=== PATIENT | male | born 1945 | race Caucasian/White ===

== ENCOUNTER 2019-05-04 13:08 | Emergency (ER) | payer OTHER ==
[2019-05-04] MEDS ORDERED: traMADol TAB* 50 MG PO ONE (15:10)
[2019-05-04 15:30] VITALS: BP 134/95
--- NOTE | 2019-05-04 16:21 | ED ---
Lower Extremity - HPI Summary HPI Summary: Patient is a 74yo M presenting to the ED form [facility] with CC of L calf pain which began 2 days ago. Denies other symptoms including SOB or CP. Patient states he is currently on Xarelto. He states he developed medial left calf pain and pain behind the knee which started approximately 2 days ago. 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 Patient states he developed L medial calf pain 2 days ago but denies any injury or trauma. Remains ambulatory, but with pain. Denies erythema or warmth to the area. Patient was sent in by [facility] for concern for DVT. - History of Current Complaint Chief Complaint: EDExtremityLower Stated Complaint: LEFT LEG SWELLING/RULE OUT DVT PER OFFICER Time Seen by Provider: 05/04/19 13:12 Hx Obtained From: Patient, Medical Records Onset of Pain: Hours, Days Onset/Duration: Days Severity Initially: Moderate Severity Currently: Moderate Pain Intensity: 5 Pain Scale Used: 0-10 Numeric Timing: Constant Location: Is Discrete @ - left medial calf Character Of Pain: Aching Associated Signs And Symptoms: Positive: Swelling. Negative: Redness, Bruising , Fever, Weakness, Dizziness Aggravating Factor(s): Standing, Ambulation Alleviating Factor(s): Rest Able to Bear Weight: No - Risk Factors Gout Risk Factors: Negative DVT Risk Factors: Negative Septic Arthritis Risk Factor: Negative - Allergies/Home Medications Allergies/Adverse Reactions: Allergies Allergy/AdvReac Type Severity Reaction Status Date / Time No Known Allergies Allergy Verified 05/04/19 13:13 Home Medications: Home Medications Aspirin EC TAB* [Ecotrin EC TAB*] 325 mg PO DAILY 05/04/19 [History Confirmed ] Calcium Polycarbophil TAB* [Fibercon TAB*] 625 mg PO DAILY 05/04/19 [History Confirmed 05/04/19] Cholecalciferol TAB* [Vitamin D TAB*] 2,000 units PO DAILY 05/04/19 [History Confirmed 05/04/19] Clopidogrel TAB* [Plavix TAB*] 75 mg PO DAILY 05/04/19 [History Confirmed ] Dextran 70/Hypromellose [Artificial Tears] 1 each BOTH EYES DAILY 05/04/19 [ History Confirmed 05/04/19] Insulin GLARGINE(*) [Lantus(*)] 30 units SUBCUT Q24H 05/04/19 [History Confirmed 05/04/19] Isosorbide Mononitrate ER TAB* [Imdur ER TAB*] 60 mg PO DAILY 05/04/19 [History Confirmed 05/04/19] Levothyroxine TAB* [Synthroid TAB*] 175 mcg PO 0600 05/04/19 [History Confirmed 05/04/19] Lisinopril [Lisinopril 2.5 MG-] 2.5 mg PO DAILY 05/04/19 [History Confirmed ] Metoprolol Tartrate TAB* [Lopressor TAB*] 25 mg PO BID 05/04/19 [History Confirmed 05/04/19] Minerin Cream* [Minerin*] 1 top.gel TOPICAL DAILY 05/04/19 [History Confirmed ] Nitroglycerin TAB 0.4 MG* 0.4 mg SL Q5M PRN 05/04/19 [History Confirmed 05/04/19 ] Omeprazole CAP (NF) [Prilosec CAP* 20 MG] 20 mg PO DAILY 05/04/19 [History Confirmed 05/04/19] Ranolazine (NF) [Ranexa (NF)] 500 mg PO BID 05/04/19 [History Confirmed 05/04/19 ] celeCOXIB CAP* [CeleBREX CAP*] 100 mg PO BID 05/04/19 [History Confirmed ] glipiZIDE TAB* [Glucotrol TAB*] 20 mg PO DAILY 05/04/19 [History Confirmed 05/04] PMH/Surg Hx/FS Hx/Imm Hx Previously Healthy: Yes - Immunization History Hx Pertussis Vaccination: No Immunizations Up to Date: Yes Infectious Disease History: No Infectious Disease History: Denies: Traveled Outside the [place] in Last 30 Days - Social History Occupation: Unemployed Lives: Alone - [facility] Alcohol Use: None Substance Use Type: Reports: None Smoking Status (MU): Former Smoker Review of Systems Constitutional: Negative Negative: Fever, Chills, Fatigue, Skin Diaphoresis Negative: Palpitations, Chest Pain Negative: Shortness Of Breath, Cough Genitourinary: Negative Positive: no symptoms reported, see HPI Positive: Other - left medial calf pain with pain on palpation Skin: Negative Neurological: Negative All Other Systems Reviewed And Are Negative: Yes Physical Exam Triage Information Reviewed: Yes Vital Signs On Initial Exam: Initial Vitals Temp Pulse Resp BP Pulse Ox 98.1 F 67 17 127/81 95 05/04/19 13:10 05/04/19 13:10 05/04/19 13:10 05/04/19 13:10 05/04/19 13:10 Vital Signs Reviewed: Yes Appearance: Positive: Well-Appearing, Well-Nourished Skin: Positive: Warm, Skin Color Reflects Adequate Perfusion Head/Face: Positive: Normal Head/Face Inspection Eyes: Positive: EOMI, FRANCO, Conjunctiva Clear Neck: Positive: Supple, No Lymphadenopathy Respiratory/Lung Sounds: Positive: Clear to Auscultation, Breath Sounds Present Cardiovascular: Positive: RRR, Pulses are Symmetrical in both Upper and Lower Extremities. Negative: Leg Edema Left, Leg Edema Right Musculoskeletal: Positive: Pain @ - left medial calf pain Neurological: Positive: Speech Normal Psychiatric: Positive: Affect/Mood Appropriate AVPU Assessment: Alert Diagnostics - Vital Signs Vital Signs Temp Pulse Resp BP Pulse Ox 05/04/19 15:27 97.7 F 75 18 134/95 95 05/04/19 13:10 98.1 F 67 17 127/81 95 - Laboratory Lab Statement: Any lab studies that have been ordered have been reviewed, and results considered in the medical decision making process. Lower Extremity Course/Dx - Course Course Of Treatment: Patient evaluated for L calf pain which was acute onset 2 days ago. Denies SOB. Pain also behind the knee which remains unchanged x several years. Remains ambulatory. Worse with abulation, better with rest. US obtained. No left lower exremity DVT. Complicated fluid collection extending from the popliteal fossa to the proximal calf suggestive of a ruptured cust. Additionally, there is a complex cystic and solid mass of the medial popliteal fossa that is incompletely evaluated on the current examination. Recommend consideration of further evaluation with contrast enhanced MRI of the knee. Discussed with patient who will f/u with ortho. Likely this is cystic vs. fluid from bakers cyst. Patient remains ambulatory. No erythema or warmth. Pulses +2 intact bilaterally. No numbness or tingling. Positive homans. Pain with direct pressure. - Diagnoses Differential Diagnosis/HQI/PQRI: Positive: Other - ruptured bakers cyst, cystic mass, dvt Provider Diagnoses: Ruptured Bakers cyst, Calf pain Discharge - Sign-Out/Discharge Documenting (check all that apply): Patient Departure Patient Received Moderate/Deep Sedation with Procedure: No - Discharge Plan Condition: Stable Disposition: HOME Prescriptions: traMADol TAB* [Ultram*] 50 mg PO Q8H PRN #12 tab MDD 3 PRN Reason: Pain Patient Education Materials: Bakers Cyst (ED) Referrals: Anne Dubon MD [Medical Doctor] - Jose D ASHRAF,Jessy Streeter [Primary Care Provider] - Additional Instructions: Please follow up with orthopedics regarding this issue - call for an appt tomorrow Tramadol 50mg three times daily given for pain control Continue to take tylenol intermittently I have given you information/name and phone number for ortho Ele[facility] and rest when possible - Billing Disposition and Condition Condition: STABLE Disposition: Home
== END 2019-05-04 15:27 | disposition home or self-care (01) ==
LOC: ED 13:08
DX: M66.0 Rupture of popliteal cyst (principal); M79.662 Pain in left lower leg; Z79.01 Long term (current) use of anticoagulants; Z79.82 Long term (current) use of aspirin; Z87.891 Personal history of nicotine dependence
CPT/HCPCS: 99282; A9270-GY

== ENCOUNTER 2020-01-08 12:56 | Emergency (ER) | payer OTHER ==
[2020-01-08] MEDS ORDERED: oxyCODONE/Acetamin 5/325 MG* TAB PO ONE (13:21)
[2020-01-08] MEDS ORDERED: Ketorolac INJ* 30 MG/ML 1 ML VIAL IM ONE (13:21)
--- NOTE | 2020-01-08 14:48 | ED ---
Lower Extremity - HPI Summary HPI Summary: Patient is a 74 y/o M presenting to [facility] with complaints of pain at his left knee to his left-mid thigh area. He states that he has experienced issues with this knee in the past and claims he was under consideration to receive a knee replacement. Pain has been present for the past few days. It is noted that the pain is mostly at the frontal aspect of the leg; pain is characterized as a burning sensation. He notes that he uses a wheelchair to move long distances. At baseline, he is capable of ambulating a few steps but has not been able to do this recently secondary to pain. He denies lower leg, hip and back pain as well as recent falls or discrete injuries. Movement and palpation aggravate Sx. He also claims that he has had a lump at his left knee area since 2002. Home medications and allergies are reviewed. Temperature is 98.2 F on vitals, no fever. Home Medications Medication Instructions Recorded Confirmed Type Aspirin EC TAB* [Ecotrin EC TAB*] 325 mg PO DAILY 05/04/19 05/04/19 History Calcium Polycarbophil TAB* 625 mg PO DAILY 05/04/19 05/04/19 History [Fibercon TAB*] Cholecalciferol TAB* [Vitamin D 2,000 units PO DAILY 05/04/19 05/04/19 History TAB*] Clopidogrel TAB* [Plavix TAB*] 75 mg PO DAILY 05/04/19 05/04/19 History Insulin GLARGINE(*) [Lantus(*)] 30 units SUBCUT Q24H 05/04/19 05/04/19 History Isosorbide Mononitrate ER TAB* 60 mg PO DAILY 05/04/19 05/04/19 History [Imdur ER TAB*] Levothyroxine TAB* [Synthroid TAB*] 175 mcg PO 0600 05/04/19 05/04/19 History Metoprolol Tartrate TAB* 25 mg PO BID 05/04/19 05/04/19 History [Lopressor TAB*] Omeprazole CAP (NF) [Prilosec CAP* 20 mg PO DAILY 05/04/19 05/04/19 History 20 MG] Ranolazine (NF) [Ranexa (NF)] 500 mg PO BID 05/04/19 05/04/19 History glipiZIDE TAB* [Glucotrol TAB*] 20 mg PO DAILY 05/04/19 05/04/19 History lisinopriL [Lisinopril 2.5 MG-] 2.5 mg PO DAILY 05/04/19 05/04/19 History Ibuprofen TAB* [Motrin TAB* 600 MG] 600 mg PO TID PRN 01/08/20 01/08/20 History - History of Current Complaint Chief Complaint: EDExtremityLower Stated Complaint: L LEG PAIN PER EMS Time Seen by Provider: 01/08/20 13:13 Hx Obtained From: Patient Mechanism Of Injury: Other - no discrete injury Onset of Pain: Days, Prior to Arrival Onset/Duration: Still Present Severity Currently: Severe Pain Intensity: 10 Pain Scale Used: 0-10 Numeric Timing: Constant, Lasting Days Location: Is Discrete @ - left knee to left mid thigh area Character Of Pain: Burning Associated Signs And Symptoms: Positive: Knee Pain - left, Other - denies lower leg, hip and back pain as well as recent falls or discrete injuries Aggravating Factor(s): Movement, Other - palpation - Allergies/Home Medications Allergies/Adverse Reactions: Allergies Allergy/AdvReac Type Severity Reaction Status Date / Time No Known Allergies Allergy Verified 01/08/20 13:06 Home Medications: Home Medications Aspirin EC TAB* [Ecotrin EC TAB*] 325 mg PO DAILY 05/04/19 [History Confirmed ] Calcium Polycarbophil TAB* [Fibercon TAB*] 1,000 mg PO DAILY 05/04/19 [History Confirmed 01/08/20] Cholecalciferol TAB* [Vitamin D TAB*] 2,000 units PO DAILY 05/04/19 [History Confirmed 01/08/20] Clopidogrel TAB* [Plavix TAB*] 75 mg PO DAILY 05/04/19 [History Confirmed ] Insulin GLARGINE(*) [Lantus(*)] 40 units SUBCUT QPM 05/04/19 [History Confirmed 01/08/20] Isosorbide Mononitrate ER TAB* [Imdur ER TAB*] 60 mg PO QPM 05/04/19 [History Confirmed 01/08/20] Levothyroxine TAB* [Synthroid TAB*] 175 mcg PO DAILY 05/04/19 [History Confirmed 01/08/20] Metoprolol Tartrate TAB* [Lopressor TAB*] 25 mg PO BID 05/04/19 [History Confirmed 01/08/20] Omeprazole CAP (NF) [Prilosec CAP* 20 MG] 20 mg PO DAILY 05/04/19 [History Confirmed 01/08/20] Ranolazine (NF) [Ranexa (NF)] 500 mg PO BID 05/04/19 [History Confirmed 01/08/20 ] glipiZIDE TAB* [Glucotrol TAB*] 20 mg PO DAILY 05/04/19 [History Confirmed 01/08] lisinopriL [Lisinopril 2.5 MG-] 2.5 mg PO DAILY 05/04/19 [History Confirmed ] Ibuprofen TAB* [Motrin TAB* 600 MG] 600 mg PO TID PRN 01/08/20 [History Confirmed 01/08/20] PMH/Surg Hx/FS Hx/Imm Hx Sensory History: Denies: Hx Legally Blind, Hx Deafness Opthamlomology History: Denies: Hx Legally Blind EENT History: Denies: Hx Deafness Infectious Disease History: No Infectious Disease History: Denies: Traveled Outside the [place] in Last 30 Days - Family History Known Family History: Negative: Seizure Disorder - Social History Alcohol Use: None Substance Use Type: Reports: None Smoking Status (MU): Former Smoker Review of Systems Negative: Fever - Temperature is 98.2 F on vitals, no fever. Musculoskeletal: Other - negative - lower leg, hip and back pain as well as recent falls or discrete injuries Positive: Myalgia - pain at left knee to his left-mid thigh area All Other Systems Reviewed And Are Negative: Yes Physical Exam - Summary Physical Exam Summary: Constitutional: Well-developed, Well-nourished, Alert. (-) Distressed Skin: Warm, Dry HENT: Normocephalic; Atraumatic Eyes: Conjunctiva normal Neck: Musculoskeletal ROM normal neck. (-) JVD, (-) Stridor, (-) Nuchal rigidity Cardio: Rhythm regular, rate normal, Heart sounds normal; Intact distal pulses; Radial pulses are 2+ and symmetric. (-) Murmur Pulmonary/Chest wall: Effort normal. (-) Respiratory distress, (-) Wheezes, (-) Rales Abd: Soft, (-) tenderness, (-) Distension, (-) Guarding, (-) Rebound Musculoskeletal: Tenderness over the left anterior thigh, pain with straight leg raise of LLE, no pain distal to the knee, no lumbar tenderness. (-) Edema Lymph: (-) Cervical adenopathy Neuro: Alert, Oriented x3 Psych: Mood and affect Normal Triage Information Reviewed: Yes Vital Signs On Initial Exam: Initial Vitals Temp Pulse Resp BP Pulse Ox 98.2 F 62 19 183/112 97 01/08/20 13:02 01/08/20 13:02 01/08/20 13:02 01/08/20 13:02 01/08/20 13:02 Vital Signs Reviewed: Yes Procedures - Sedation Patient Received Moderate/Deep Sedation with Procedure: No Diagnostics - Vital Signs Vital Signs Temp Pulse Resp BP Pulse Ox 01/08/20 13:44 19 01/08/20 13:02 98.2 F 62 19 183/112 97 - Laboratory Result Diagrams: 01/08/20 16:28 01/08/20 16:28 Lab Statement: Any lab studies that have been ordered have been reviewed, and results considered in the medical decision making process. - Radiology LEFT FEMUR X-RAY Radiology Interpretation Completed By: Radiologist Summary of Radiographic Findings: IMPRESSION: 1. No fracture identified. 2. Radiopaque debris. 3. Vascular calcifications. 4. Postoperative changes. 5. Moderate osteoarthropathy left hip and knee. THIS REPORT WAS REVIEWED BY ED PHYSICIAN. - EKG 1704 Cardiac Rate: NL - rate of 65 BPM EKG Rhythm: Sinus Rhythm EKG Comparison: No Significant Change - No significant changes compared to prior from 08/07/2018. Summary of EKG Findings: EKG showed NSR with rate of 65 BPM, incomplete RBBB, T wave inversions in lead I, aVL, V1, V2. No significant changes compared to prior from 08/07/2018. Re-Evaluation - Re-Evaluation First Eval Re-Evaluation Time: 14:11 Comment: Patient is currently sleeping. Second Eval Re-Evaluation Time: 16:23 Comment: Upon notification of discharge, patient states that he wants to have a cardiac workup as he claims that he had an episode of angina earlier. Hx of cardiac disease reported. Cardiac workup to be done. Third Eval Re-Evaluation Time: 18:08 Comment: Patient ambulated to the bathroom. He denies CP. Sx are improved. Patient to be discharged to home. Lower Extremity Course/Dx - Course Course Of Treatment: 74 y/o male w hx CAD p/w RLE pain. - L spine XR at group home done, denies back pain. Exam c/w meralgia paresthetica. Given toradol, percocet felt better. XR neg. Advised he can try motrin, percocet. Upon discharge patient requesting cardiac w/u as he had angina at rest earlier. Hx of similar, known CAD. EKG unchanged from prior obtained from group home records. Trop negative. Denies current symptoms. - Diagnoses Provider Diagnoses: Meralgia paresthetica of left side, Chest pain Discharge ED - Sign-Out/Discharge Documenting (check all that apply): Patient Departure - discharge - Discharge Plan Condition: Stable Disposition: HOME Patient Education Materials: Chest Pain (ED), Meralgia Paresthetica (ED) Referrals: Jessy Jeffery NP [Primary Care Provider] - Additional Instructions: You were seen in the emergency department for pain. Your x-ray didn't show any fractures. You likely have a pinched nerve. Try mortrin 800 mg three times a day, percocet 5-325 mg for severe pain and flexeril 10 mg for muscle pain. Please follow up with your primary care doctor in next 2-3 days and return to emergency department for chest pain, trouble breathing, worsening or concerning symptoms. It was a pleasure taking care of you today. - Billing Disposition and Condition Condition: STABLE Disposition: Home - Attestation Statements Document Initiated by Keily: Yes Documenting Scribe: KIMBERLEY ARRIAGA Provider For Whom Keily is Documenting (Include Credential): SHERYL WAN MD Scribe Attestation: I, KIMBERLEY ARRIAGA, scribed for SHERYL WAN MD on 01/08/20 at 1820. Scribe Documentation Reviewed: Yes Provider Attestation: The documentation as recorded by the KIMBERLEY ly accurately reflects the service I personally performed and the decisions made by me, SHERYL WAN MD Status of Scribe Document: Viewed
[2020-01-08] MEDS ORDERED: Cyclobenzaprine TAB* 10 MG PO ONE (16:23)
[2020-01-08] MEDS ORDERED: Aspirin 81 mg CHEW TAB* 81 MG TAB.CHEW PO ONE (16:23)
[2020-01-08 16:44] LABS: ABS Basophils 0.1 10^3/ul (0-0.2); ABS Eosinophils 0.1 10^3/ul (0-0.6); ABS Lymphocytes 1.6 10^3/ul (1.0-4.8); ABS Monocytes 0.8 10^3/ul (0-0.8); ABS Neutrophils 4.4 10^3/ul (1.5-7.7); Hematocrit 40 % (42-52); Hemoglobin 13.3 g/dL (14.0-18.0); Lymphocyte % 23.2 %; Mean Corpuscular HGB Conc 33 g/dL (31-36); Mean Corpuscular Hemoglobin 25 pg (27-31); Mean Corpuscular Volume 77 fL (80-94); Mean Platelet Volume 8.9 fL (7.4-10.4); Nucleated Red Blood Cells % 0.2; Platelet Count 162 10^3/uL (150-450); Red Blood Count 5.22 10^6 /uL (4.18-5.48); Red Cell Distribution Width 17 % (10-15)
[2020-01-08 16:56] LABS: Albumin 4.4 g/dL (3.2-5.2); Albumin/Globulin Ratio 1.4 (1-3); BUN/Creatinine Ratio 12.6 (8-20); Calcium 9.7 mg/dL (8.6-10.3); EGFR African American 66.7 (>60); EGFR Non-African American 55.1 (>60); Globulin 3.1 g/dL (2-4); Potassium 3.6 mmol/L (3.5-5.0); Total Bilirubin 0.6 mg/dL (0.2-1.0); Total Protein 7.5 g/dL (6.4-8.9)
[2020-01-08 16:57] LABS: Troponin I 0.02 ng/mL (<0.03)
[2020-01-08 18:27] VITALS: BP 165/88
== END 2020-01-08 18:26 | disposition home or self-care (01) ==
LOC: ED 12:56
DX: G57.12 Meralgia paresthetica, left lower limb (principal); R07.9 Chest pain, unspecified; Z87.891 Personal history of nicotine dependence; Z79.01 Long term (current) use of anticoagulants; Z79.82 Long term (current) use of aspirin; Z79.899 Other long term (current) drug therapy
CPT/HCPCS: 36415; 80053; 84484; 85025; 93005; 96372; 99282; A9270-GY; J1885

== ENCOUNTER 2020-12-01 18:16 | Inpatient (IN) ==
[2020-12-01] MEDS ORDERED: Heparin - STEMI 5,000 UNITS/ML 1 ml VIAL IV ONE ×2 (18:37)
[2020-12-01 18:47] LABS: INR 1.3 (0.82-1.09)
[2020-12-01 18:56] LABS: Hematocrit 22 % (42-52); Hemoglobin 6.8 g/dL (14.0-18.0); Mean Corpuscular HGB Conc 31 g/dL (31-36); Mean Corpuscular Hemoglobin 31 pg (27-31); Mean Corpuscular Volume 100 fL (80-94); Mean Platelet Volume 8.1 fL (7.4-10.4); Platelet Count 98 10^3/uL (150-450); Red Blood Count 2.19 10^6 /uL (4.18-5.48); Red Cell Distribution Width 19 % (10-15); White Blood Count 10.6 10^3/uL (3.5-10.8)
[2020-12-01 18:58] LABS: ALT 15 U/L (7-52); AST 37 U/L (13-39); Albumin 4.3 g/dL (3.2-5.2); Albumin/Globulin Ratio 1.2 (1-3); Alkaline Phosphatase 40 U/L (34-104); Anion Gap 9 mmol/L (2-11); BUN/Creatinine Ratio 12.1 (8-20); Blood Urea Nitrogen 24 mg/dL (6-24); CO2 Carbon Dioxide 22 mmol/L (22-32); Calcium 9.4 mg/dL (8.6-10.3); Chloride 103 mmol/L (101-111); EGFR African American 39.6 (>60); EGFR Non-African American 32.7 (>60); Globulin 3.6 g/dL (2-4); Glucose 63 mg/dL (70-100); Potassium 3.7 mmol/L (3.5-5.0); Sodium 134 mmol/L (135-145); Total Protein 7.9 g/dL (6.4-8.9)
[2020-12-01] MEDS ORDERED: Midazolam 5 mg/5 ml VIAL 1 mg/ml 5 ml VIAL (5 mg) ONE (18:59)
[2020-12-01] MEDS ORDERED: nitroGLYCERIN DRIP 25,000 MCG/250 ML BTL ONE (19:00)
[2020-12-01] MEDS ORDERED: fentaNYL 100 mcg/2 ml 50 MCG/ML VIAL ONE (19:00)
[2020-12-01] MEDS ORDERED: VERAPAMIL 2.5 MG/ML 2 ML VIAL ** 5 mg/2 ml ONE (19:00)
[2020-12-01] MEDS ORDERED: Iohexol 350 (CONTRAST) 200 ML MDV IV ONE (19:00)
[2020-12-01] MEDS ORDERED: Heparin 2 UNITS/ML 1000 mls 2,000 ML IV ONE (19:00)
[2020-12-01] MEDS ORDERED: Lidocaine 1% VIAL 10 MG/ML VIAL ONE (19:00)
[2020-12-01] MEDS ORDERED: Heparin 1,000 UNIT/ML 10 ml (10,000 UNITS) CATHLAB/DIALYSIS ONE (19:00)
[2020-12-01 19:01] LABS: Troponin I 2.31 ng/mL (<0.03)
[2020-12-01] MEDS ORDERED: Iodixanol 320 (CONTRAST) 100 ML SDV ONE ×3 (19:09→20:02)
[2020-12-01] MEDS ORDERED: Amiodarone IV 150 mg/3 ml VIAL ONE (19:37)
[2020-12-01] MEDS ORDERED: Magnesium Sulfate IV 0.5 GM/ML 2 ml VIAL (1 gm) ONE (19:38)
[2020-12-01] MEDS ORDERED: DOPamine 800 MG/250 ML IVPREM 800 MG/250 ML ML CENTR ONE (19:40)
[2020-12-01] MEDS ORDERED: Amiodarone 360 MG IVPREMIX 360 MG/200 ML BAG IV ONE ×2 (19:49→20:00)
[2020-12-01 19:59] LABS: Polychromasia 2+
[2020-12-01 20:00] LABS: ABS Lymphocytes 1.4 10^3/ul (1.0-4.8); ABS Monocytes 0.3 10^3/ul (0-0.8); ABS Neutrophils 8.9 10^3/ul (1.5-7.7); ABS Nucleated RBC 0.1 10^3/ul
[2020-12-01] MEDS ORDERED: NS 0.9% 1000 ml BAG 1,000 ML IV ONE ×2 (20:27→23:17)
[2020-12-01] MEDS ORDERED: Furosemide 40 mg/4 ml IV VIAL IV SLOW PU ONE (21:18)
[2020-12-01] MEDS ORDERED: Morphine 2 MG/ML SYRINGE IV ONE (21:42)
[2020-12-01] MEDS ORDERED: Ondansetron 4 mg VIAL 2 MG/ML 2 ml VIAL ONE (21:59)
[2020-12-01] MEDS ORDERED: Ondansetron 4 mg VIAL 2 MG/ML 2 ml VIAL IV ONE (22:08)
[2020-12-01 22:28] LABS: ABS Lymphocytes 1.3 10^3/ul (1.0-4.8); ABS Monocytes 0.4 10^3/ul (0-0.8); ABS Neutrophils 10.1 10^3/ul (1.5-7.7); ABS Nucleated RBC 0.2 10^3/ul; Eosinophil % 0.4 %; Hematocrit 21 % (42-52); Hemoglobin 6.5 g/dL (14.0-18.0); Lymphocyte % 11.1 %; Mean Corpuscular HGB Conc 31 g/dL (31-36); Mean Corpuscular Hemoglobin 31 pg (27-31); Mean Corpuscular Volume 99 fL (80-94); Mean Platelet Volume 7.9 fL (7.4-10.4); Nucleated Red Blood Cells % 1.2; Platelet Count 93 10^3/uL (150-450); Red Blood Count 2.12 10^6 /uL (4.18-5.48); Red Cell Distribution Width 19 % (10-15); White Blood Count 11.9 10^3/uL (3.5-10.8)
[2020-12-01 22:40] LABS: Anion Gap 11 mmol/L (2-11); BUN/Creatinine Ratio 12.5 (8-20); Blood Urea Nitrogen 25 mg/dL (6-24); CO2 Carbon Dioxide 20 mmol/L (22-32); Calcium 8.9 mg/dL (8.6-10.3); Chloride 101 mmol/L (101-111); EGFR African American 39.4 (>60); EGFR Non-African American 32.6 (>60); Glucose 77 mg/dL (70-100); Magnesium 1.8 mg/dL (1.9-2.7); Phosphorus 3.6 mg/dL (2.5-5.0); Potassium 3.5 mmol/L (3.5-5.0); Sodium 132 mmol/L (135-145)
[2020-12-01] MEDS ORDERED: Potassium Chlor 20 meq TAB.ER PO ONE (23:18)
[2020-12-01] MEDS ORDERED: Magnesium Sulfate IV 3 GM in NS 0.9% 100 ml BAG 100 ML IVPB ONE (23:18)
[2020-12-01 23:23] LABS: TSH Ultra Thyroid Stim Horm 7.17 mcIU/mL (0.34-5.60)
[2020-12-01 23:38] LABS: Troponin I 2.24 ng/mL (<0.03)
[2020-12-02 00:23] LABS: Free T4 0.61 ng/dL (0.61-1.12)
[2020-12-02 01:11] LABS: Total T3 55 ng/dL (87-178)
[2020-12-02] MEDS: Amiodarone 360 MG IVPREMIX 360 MG/200 ML BAG IV SCH ×2 (01:36→11:49)
[2020-12-02] MEDS ORDERED: Dextrose 50% Syringe 50 ml 25 GM/50 ML SYRINGE IV PUSH PRN (02:28)
[2020-12-02 03:41] LABS: Troponin I 3.57 ng/mL (<0.03)
[2020-12-02 03:59] LABS: Hematocrit 24 % (42-52); Hemoglobin 7.4 g/dL (14.0-18.0); Mean Corpuscular HGB Conc 32 g/dL (31-36); Mean Corpuscular Hemoglobin 30 pg (27-31); Mean Corpuscular Volume 96 fL (80-94); Mean Platelet Volume 8.3 fL (7.4-10.4); Platelet Count 88 10^3/uL (150-450); Red Blood Count 2.45 10^6 /uL (4.18-5.48); Red Cell Distribution Width 19 % (10-15); White Blood Count 12.3 10^3/uL (3.5-10.8)
[2020-12-02 04:11] LABS: ALT 14 U/L (7-52); AST 38 U/L (13-39); Albumin 3.7 g/dL (3.2-5.2); Alkaline Phosphatase 39 U/L (34-104); Anion Gap 11 mmol/L (2-11); Blood Urea Nitrogen 23 mg/dL (6-24); CO2 Carbon Dioxide 20 mmol/L (22-32); Calcium 8.5 mg/dL (8.6-10.3); Chloride 100 mmol/L (101-111); Cholesterol 116 mg/dL; EGFR African American 41.3 (>60); EGFR Non-African American 34.1 (>60); Globulin 3.7 g/dL (2-4); Glucose 129 mg/dL (70-100); HDL Cholesterol 18.1 mg/dL; LDL Cholesterol 56 mg/dL; Potassium 3.6 mmol/L (3.5-5.0); Sodium 131 mmol/L (135-145); Total Protein 7.4 g/dL (6.4-8.9); Triglycerides 209 mg/dL
[2020-12-02] MEDS ORDERED: Potassium Chlor 20 meq TAB.ER PO ONE (04:21)
[2020-12-02 05:08] LABS: Polychromasia 3+
[2020-12-02 05:11] LABS: ABS Monocytes 0.4 10^3/ul (0-0.8); ABS Neutrophils 10.9 10^3/ul (1.5-7.7); ABS Nucleated RBC 0.1 10^3/ul; Eosinophil % 0.3 %; Lymphocyte % 7.9 %; Nucleated Red Blood Cells % 1.1
[2020-12-02 07:47] LABS: Magnesium 2.2 mg/dL (1.9-2.7)
[2020-12-02] MEDS ORDERED: Perflutren Lipid Microsphere 3 ML VIAL ONE (08:18)
[2020-12-02 13:27] LABS: ABS Lymphocytes 0.9 10^3/ul (1.0-4.8); ABS Monocytes 0.4 10^3/ul (0-0.8); ABS Neutrophils 9.6 10^3/ul (1.5-7.7); ABS Nucleated RBC 0.2 10^3/ul; Eosinophil % 0.3 %; Hematocrit 23 % (42-52); Hemoglobin 7.5 g/dL (14.0-18.0); Lymphocyte % 8.4 %; Mean Corpuscular HGB Conc 33 g/dL (31-36); Mean Corpuscular Hemoglobin 31 pg (27-31); Mean Corpuscular Volume 95 fL (80-94); Mean Platelet Volume 7.5 fL (7.4-10.4); Nucleated Red Blood Cells % 1.6; Platelet Count 84 10^3/uL (150-450); Red Blood Count 2.44 10^6 /uL (4.18-5.48); Red Cell Distribution Width 19 % (10-15); White Blood Count 10.9 10^3/uL (3.5-10.8)
[2020-12-02 15:01] LABS: Troponin I 3.73 ng/mL (<0.03)
[2020-12-02 15:10] LABS: % Iron Saturation 10 % (15-55); Iron 29 ug/dL (50-212); Total Iron Binding Capacity 283 mcg/dL (250-450); Transferrin 202 mg/dL (203-362); Unsaturated Iron Binding < 268 ug/dL
[2020-12-02 15:25] LABS: Ferritin 240.5 ng/mL (24-336)
[2020-12-02] MEDS ORDERED: Ondansetron 4 mg VIAL 2 MG/ML 2 ml VIAL ONE (16:05)
[2020-12-02] MEDS: Ondansetron 4 mg VIAL 2 MG/ML 2 ml VIAL IV PRN (16:20)
[2020-12-02] MEDS ORDERED: fentaNYL 100 mcg/2 ml 50 MCG/ML VIAL ONE (17:05)
[2020-12-02] MEDS ORDERED: Midazolam 10 mg/10 ml VIAL 1 mg/ml 10 ml VIAL (10 mg) ONE (17:05)
[2020-12-02] MEDS ORDERED: diPHENhydraMINE IV 50 MG/ML 1 ml VIAL (BENADRYL) ONE (17:06)
[2020-12-02] MEDS ORDERED: Furosemide 40 mg/4 ml IV VIAL IV SLOW PU ONE (20:17)
[2020-12-02] MEDS: Pantoprazole VIAL 40 MG VIAL IV SCH (21:17)
[2020-12-03 05:36] LABS: Hematocrit 27 % (42-52); Hemoglobin 8.8 g/dL (14.0-18.0); Mean Corpuscular HGB Conc 32 g/dL (31-36); Mean Corpuscular Hemoglobin 30 pg (27-31); Mean Corpuscular Volume 94 fL (80-94); Mean Platelet Volume 7.5 fL (7.4-10.4); Platelet Count 82 10^3/uL (150-450); Red Blood Count 2.89 10^6 /uL (4.18-5.48); Red Cell Distribution Width 20 % (10-15); White Blood Count 7.7 10^3/uL (3.5-10.8)
[2020-12-03 05:53] LABS: Anion Gap 9 mmol/L (2-11); BUN/Creatinine Ratio 10.8 (8-20); Blood Urea Nitrogen 20 mg/dL (6-24); CO2 Carbon Dioxide 23 mmol/L (22-32); Calcium 9.1 mg/dL (8.6-10.3); Chloride 103 mmol/L (101-111); EGFR African American 42.8 (>60); EGFR Non-African American 35.4 (>60); Glucose 50 mg/dL (70-100); Potassium 3.7 mmol/L (3.5-5.0); Sodium 135 mmol/L (135-145)
[2020-12-03 06:12] LABS: % Iron Saturation 20 % (15-55); Iron 53 ug/dL (50-212); Total Iron Binding Capacity 262 mcg/dL (250-450); Transferrin 187 mg/dL (203-362); Unsaturated Iron Binding < 247 ug/dL
[2020-12-03 06:38] LABS: Folate 10.84 ng/mL (>3.99); Vitamin B12 > 1450 pg/mL (180-914)
[2020-12-03] MEDS: Pantoprazole VIAL 40 MG VIAL IV SCH ×2 (08:31→20:55)
[2020-12-03] MEDS ORDERED: Iron Sucrose 200 MG in NS 0.9% 100 ml BAG 100 ML IVPB ONE (11:05)
[2020-12-03] MEDS: Triamcinolone 0.5% OINT 1 TUBE TOPICAL SCH ×2 (14:56→22:18)
[2020-12-03] MEDS ORDERED: Magnesium CITRATE LIQ 300 ML BTL PO ONE (16:04)
[2020-12-04] MEDS: Pantoprazole VIAL 40 MG VIAL IV SCH (08:47)
[2020-12-04 09:09] LABS: BUN/Creatinine Ratio 14.6 (8-20); Calcium 8.7 mg/dL (8.6-10.3); EGFR African American 38.1 (>60); EGFR Non-African American 31.5 (>60); Magnesium 2.2 mg/dL (1.9-2.7)
[2020-12-04 09:46] LABS: ABS Lymphocytes 0.9 10^3/ul (1.0-4.8); ABS Monocytes 0.1 10^3/ul (0-0.8); ABS Neutrophils 4.4 10^3/ul (1.5-7.7); Eosinophil % 0.8 %; Hematocrit 29 % (42-52); Hemoglobin 9.1 g/dL (14.0-18.0); Lymphocyte % 16.5 %; Mean Corpuscular HGB Conc 31 g/dL (31-36); Mean Corpuscular Hemoglobin 30 pg (27-31); Mean Corpuscular Volume 97 fL (80-94); Mean Platelet Volume 8.3 fL (7.4-10.4); Nucleated Red Blood Cells % 0.7; Platelet Count 103 10^3/uL (150-450); Red Blood Count 3.01 10^6 /uL (4.18-5.48); Red Cell Distribution Width 20 % (10-15); White Blood Count 5.6 10^3/uL (3.5-10.8)
[2020-12-04] MEDS: Triamcinolone 0.5% OINT 1 TUBE TOPICAL SCH ×3 (10:58→21:43)
[2020-12-05] MEDS: Triamcinolone 0.5% OINT 1 TUBE TOPICAL SCH ×3 (09:05→20:25)
[2020-12-05 09:38] LABS: Hematocrit 29 % (42-52); Mean Corpuscular HGB Conc 31 g/dL (31-36); Mean Corpuscular Hemoglobin 30 pg (27-31); Mean Corpuscular Volume 95 fL (80-94); Mean Platelet Volume 7.9 fL (7.4-10.4); Platelet Count 110 10^3/uL (150-450); Red Blood Count 3.05 10^6 /uL (4.18-5.48); Red Cell Distribution Width 20 % (10-15); White Blood Count 4.9 10^3/uL (3.5-10.8)
[2020-12-05 09:58] LABS: BUN/Creatinine Ratio 16.7 (8-20); Calcium 8.8 mg/dL (8.6-10.3); EGFR African American 39.9 (>60); EGFR Non-African American 32.9 (>60); Potassium 4.1 mmol/L (3.5-5.0)
[2020-12-05 11:41] LABS: Polychromasia 2+
[2020-12-05 11:42] LABS: ABS Basophils 0.1 10^3/ul (0-0.2); ABS Lymphocytes 1.1 10^3/ul (1.0-4.8); ABS Monocytes 0.1 10^3/ul (0-0.8); ABS Neutrophils 3.7 10^3/ul (1.5-7.7); Lymphocyte % 21.4 %; Nucleated Red Blood Cells % 0.5
[2020-12-05 13:03] LABS: Indirect Bilirubin 0.7 mg/dL (0.3-1.0); Phosphorus 3.4 mg/dL (2.5-5.0); Total Bilirubin 0.9 mg/dL (0.2-1.0)
[2020-12-05] MEDS ORDERED: Aspirin EC 81 mg TAB.EC (enteric coated) ONE (13:07)
[2020-12-05] MEDS: Aspirin EC 81 mg TAB.EC (enteric coated) PO SCH (13:08)
[2020-12-05 13:11] LABS: Corrected Retic Count 3.4 % (0.5-1.5); Hematocrit for Retic CNT 29 % (42-52); Immature Retic Fraction 0.67; RBC Retic Count 3.02 10^6/uL (4.18-5.48)
[2020-12-05 13:44] LABS: Hematocrit 28 % (42-52); Hemoglobin 8.9 g/dL (14.0-18.0); Mean Corpuscular HGB Conc 32 g/dL (31-36); Mean Corpuscular Hemoglobin 30 pg (27-31); Mean Corpuscular Volume 97 fL (80-94); Platelet Count 108 10^3/uL (150-450); Red Blood Count 2.93 10^6 /uL (4.18-5.48); Red Cell Distribution Width 20 % (10-15); White Blood Count 4.4 10^3/uL (3.5-10.8)
[2020-12-05 13:53] LABS: Hepatitis B Surface Antigen Nonreactive (Nonreactive)
[2020-12-05 13:58] LABS: Hepatitis A Ab IgM Negative (Negative)
[2020-12-05 14:03] LABS: BUN/Creatinine Ratio 17.8 (8-20); Calcium 8.9 mg/dL (8.6-10.3); EGFR African American 40.1 (>60); EGFR Non-African American 33.1 (>60); Potassium 4.3 mmol/L (3.5-5.0)
[2020-12-05 14:11] LABS: Hepatitis C Antibody Negative (Negative)
[2020-12-05 15:12] LABS: ABS Eosinophils 0.1 10^3/ul (0-0.6); ABS Lymphocytes 0.9 10^3/ul (1.0-4.8); ABS Monocytes 0.1 10^3/ul (0-0.8); ABS Neutrophils 3.3 10^3/ul (1.5-7.7); Eosinophil % 1.4 %; Lymphocyte % 20.4 %; Nucleated Red Blood Cells % 0.3
[2020-12-05 15:15] LABS: Polychromasia 2+
[2020-12-06 08:18] LABS: Hematocrit 27 % (42-52); Hemoglobin 8.5 g/dL (14.0-18.0); Mean Corpuscular HGB Conc 32 g/dL (31-36); Mean Corpuscular Hemoglobin 30 pg (27-31); Mean Corpuscular Volume 94 fL (80-94); Mean Platelet Volume 7.5 fL (7.4-10.4); Platelet Count 97 10^3/uL (150-450); Red Blood Count 2.84 10^6 /uL (4.18-5.48); Red Cell Distribution Width 19 % (10-15); White Blood Count 4.3 10^3/uL (3.5-10.8)
[2020-12-06] MEDS: Triamcinolone 0.5% OINT 1 TUBE TOPICAL SCH ×3 (08:25→19:54)
[2020-12-06] MEDS: Aspirin EC 81 mg TAB.EC (enteric coated) PO SCH (08:26)
[2020-12-06 08:48] LABS: BUN/Creatinine Ratio 18.5 (8-20); Calcium 8.8 mg/dL (8.6-10.3); EGFR African American 46.6 (>60); EGFR Non-African American 38.5 (>60); Magnesium 1.9 mg/dL (1.9-2.7); Potassium 4.3 mmol/L (3.5-5.0)
[2020-12-06 09:14] LABS: ABS Eosinophils 0.1 10^3/ul (0-0.6); ABS Monocytes 0.1 10^3/ul (0-0.8); ABS Neutrophils 3.1 10^3/ul (1.5-7.7); Eosinophil % 1.7 %; Lymphocyte % 23.6 %; Nucleated Red Blood Cells % 0.3
[2020-12-06 16:09] LABS: Hepatitis B Core IgM Nonreactive (Nonreactive)
[2020-12-06] MEDS: Senna TAB 8.6 mg TAB PO PRN ×2 (18:22→20:02)
[2020-12-06] MEDS: Insulin GLARGINE 100 un/ml 10 ml VIAL SUBCUT SCH (20:01)
[2020-12-07 07:43] LABS: Calcium 9.2 mg/dL (8.6-10.3); EGFR African American 49.2 (>60); EGFR Non-African American 40.7 (>60); Potassium 4.6 mmol/L (3.5-5.0)
[2020-12-07] MEDS: Triamcinolone 0.5% OINT 1 TUBE TOPICAL SCH ×3 (08:21→20:56)
[2020-12-07] MEDS: Aspirin EC 81 mg TAB.EC (enteric coated) PO SCH (08:31)
[2020-12-07 08:41] LABS: ABS Eosinophils 0.1 10^3/ul (0-0.6); ABS Lymphocytes 1.1 10^3/ul (1.0-4.8); ABS Monocytes 0.1 10^3/ul (0-0.8); ABS Neutrophils 4.2 10^3/ul (1.5-7.7); Eosinophil % 1.2 %; Hematocrit 27 % (42-52); Hemoglobin 8.5 g/dL (14.0-18.0); Lymphocyte % 19.8 %; Mean Corpuscular HGB Conc 31 g/dL (31-36); Mean Corpuscular Hemoglobin 30 pg (27-31); Mean Corpuscular Volume 95 fL (80-94); Nucleated Red Blood Cells % 0.4; Platelet Count 98 10^3/uL (150-450); Polychromasia 2+; Red Blood Count 2.84 10^6 /uL (4.18-5.48); Red Cell Distribution Width 19 % (10-15); White Blood Count 5.4 10^3/uL (3.5-10.8)
[2020-12-07] MEDS: Amiodarone 400 mg TAB PO SCH ×2 (13:29→20:57)
[2020-12-07 17:53] LABS: Urine Kappa Total Light Chain 3.33 mg/dL (<0.9000); Urine Kappa/Lambda Light Chain 1.14
[2020-12-07 18:24] LABS: Immunoglobulin A 240 mg/dL (61 - 356); Immunoglobulin G 1850 mg/dL (767 - 1590); Immunoglobulin M 61 mg/dL (37 - 286)
[2020-12-07] MEDS: Insulin GLARGINE 100 un/ml 10 ml VIAL SUBCUT SCH (20:56)
[2020-12-08 05:18] LABS: Hematocrit 26 % (42-52); Hemoglobin 8.4 g/dL (14.0-18.0); Mean Corpuscular HGB Conc 32 g/dL (31-36); Mean Corpuscular Hemoglobin 30 pg (27-31); Mean Corpuscular Volume 94 fL (80-94); Mean Platelet Volume 7.5 fL (7.4-10.4); Platelet Count 102 10^3/uL (150-450); Red Blood Count 2.78 10^6 /uL (4.18-5.48); Red Cell Distribution Width 19 % (10-15); White Blood Count 5.5 10^3/uL (3.5-10.8)
[2020-12-08 06:23] LABS: Polychromasia 2+
[2020-12-08 06:24] LABS: ABS Eosinophils 0.1 10^3/ul (0-0.6); ABS Lymphocytes 1.3 10^3/ul (1.0-4.8); ABS Monocytes 0.1 10^3/ul (0-0.8); Eosinophil % 1.3 %; Lymphocyte % 22.9 %; Nucleated Red Blood Cells % 0.3
[2020-12-08] MEDS: Aspirin EC 81 mg TAB.EC (enteric coated) PO SCH (08:46)
[2020-12-08] MEDS: Amiodarone 400 mg TAB PO SCH ×3 (08:46→21:25)
[2020-12-08] MEDS: Triamcinolone 0.5% OINT 1 TUBE TOPICAL SCH ×3 (08:47→21:26)
[2020-12-08] MEDS: Senna TAB 8.6 mg TAB PO PRN (13:57)
[2020-12-08 17:46] LABS: Albumin 3.3 g/dL (3.4-4.7); Albumin/Globulin Ratio 0.81; Gamma Globulin 1.9 g/dL (0.6-1.6); Total Protein(PEP) 7.4 g/dL (6.3 - 7.9)
[2020-12-08] MEDS ORDERED: Polyethylene Glycol 3350 17 GM PACKET PO ONE (18:02)
[2020-12-08] MEDS: Insulin GLARGINE 100 un/ml 10 ml VIAL SUBCUT SCH (21:23)
[2020-12-08 22:49] LABS: Kappa Free Light Chain 5.79 mg/dL
[2020-12-09] MEDS: Triamcinolone 0.5% OINT 1 TUBE TOPICAL SCH ×4 (04:04→21:17)
[2020-12-09 06:46] LABS: Hematocrit 27 % (42-52); Hemoglobin 8.5 g/dL (14.0-18.0); Mean Corpuscular HGB Conc 32 g/dL (31-36); Mean Corpuscular Hemoglobin 30 pg (27-31); Mean Corpuscular Volume 94 fL (80-94); Mean Platelet Volume 7.6 fL (7.4-10.4); Platelet Count 102 10^3/uL (150-450); Red Blood Count 2.84 10^6 /uL (4.18-5.48); Red Cell Distribution Width 18 % (10-15); White Blood Count 6.3 10^3/uL (3.5-10.8)
[2020-12-09] MEDS: Aspirin EC 81 mg TAB.EC (enteric coated) PO SCH (09:31)
[2020-12-09] MEDS: Amiodarone 400 mg TAB PO SCH ×3 (09:47→21:09)
[2020-12-09 10:20] LABS: BUN/Creatinine Ratio 21.3 (8-20); Calcium 9.2 mg/dL (8.6-10.3); EGFR African American 37.9 (>60); EGFR Non-African American 31.3 (>60); Potassium 4.4 mmol/L (3.5-5.0)
[2020-12-09] MEDS ORDERED: Polyethylene Glycol 3350 17 GM PACKET PO PRN (10:33)
[2020-12-09] MEDS ORDERED: NS 0.9% 500 ml BAG 500 ML IV ONE (16:27)
[2020-12-09] MEDS: Insulin GLARGINE 100 un/ml 10 ml VIAL SUBCUT SCH (21:11)
[2020-12-09] MEDS: Senna TAB 8.6 mg TAB PO PRN (21:19)
[2020-12-10 06:10] LABS: Hematocrit 25 % (42-52); Hemoglobin 7.9 g/dL (14.0-18.0); Mean Corpuscular HGB Conc 32 g/dL (31-36); Mean Corpuscular Hemoglobin 30 pg (27-31); Mean Corpuscular Volume 93 fL (80-94); Red Blood Count 2.65 10^6 /uL (4.18-5.48); Red Cell Distribution Width 18 % (10-15); White Blood Count 7.2 10^3/uL (3.5-10.8)
[2020-12-10 06:19] LABS: BUN/Creatinine Ratio 23.8 (8-20); Calcium 8.9 mg/dL (8.6-10.3); EGFR African American 36.4 (>60); EGFR Non-African American 30.1 (>60); Potassium 4.4 mmol/L (3.5-5.0)
[2020-12-10] MEDS: Amiodarone 400 mg TAB PO SCH ×3 (08:51→20:02)
[2020-12-10] MEDS: Aspirin EC 81 mg TAB.EC (enteric coated) PO SCH (08:51)
[2020-12-10] MEDS: Triamcinolone 0.5% OINT 1 TUBE TOPICAL SCH ×3 (08:52→20:04)
[2020-12-10 09:25] LABS: Polychromasia 1+
[2020-12-10 09:26] LABS: ABS Basophils 0.1 10^3/ul (0-0.2); ABS Eosinophils 0.1 10^3/ul (0-0.6); ABS Lymphocytes 1.6 10^3/ul (1.0-4.8); ABS Monocytes 0.1 10^3/ul (0-0.8); ABS Neutrophils 5.4 10^3/ul (1.5-7.7); Eosinophil % 1.1 %; Lymphocyte % 21.5 %; Mean Platelet Volume 7.7 fL (7.4-10.4); Nucleated Red Blood Cells % 0.5; Platelet Count 93 10^3/uL (150-450)
[2020-12-10] MEDS: Insulin GLARGINE 100 un/ml 10 ml VIAL SUBCUT SCH (20:02)
[2020-12-10] MEDS: Senna TAB 8.6 mg TAB PO PRN (20:03)
[2020-12-11 07:54] LABS: Hematocrit 25 % (42-52); Hemoglobin 8.1 g/dL (14.0-18.0); Mean Corpuscular HGB Conc 32 g/dL (31-36); Mean Corpuscular Hemoglobin 30 pg (27-31); Mean Corpuscular Volume 94 fL (80-94); Mean Platelet Volume 7.8 fL (7.4-10.4); Platelet Count 89 10^3/uL (150-450); Red Blood Count 2.71 10^6 /uL (4.18-5.48); Red Cell Distribution Width 18 % (10-15); White Blood Count 7.7 10^3/uL (3.5-10.8)
[2020-12-11] MEDS: Aspirin EC 81 mg TAB.EC (enteric coated) PO SCH (08:07)
[2020-12-11] MEDS: Triamcinolone 0.5% OINT 1 TUBE TOPICAL SCH ×3 (08:11→20:23)
[2020-12-11] MEDS: Amiodarone 400 mg TAB PO SCH ×3 (08:11→20:22)
[2020-12-11 08:40] LABS: ABS Basophils 0.1 10^3/ul (0-0.2); ABS Eosinophils 0.1 10^3/ul (0-0.6); ABS Lymphocytes 1.5 10^3/ul (1.0-4.8); ABS Monocytes 0.1 10^3/ul (0-0.8); ABS Neutrophils 5.9 10^3/ul (1.5-7.7); ABS Nucleated RBC 0.1 10^3/ul; Eosinophil % 1.1 %; Lymphocyte % 19.5 %; Nucleated Red Blood Cells % 0.6
[2020-12-11 13:40] LABS: Calcium 9.4 mg/dL (8.6-10.3); EGFR African American 40.3 (>60); EGFR Non-African American 33.3 (>60); Potassium 4.3 mmol/L (3.5-5.0)
[2020-12-11 14:39] LABS: Urine Creatinine Concentration 71.28 mg/dL
[2020-12-11] MEDS: Insulin GLARGINE 100 un/ml 10 ml VIAL SUBCUT SCH (20:22)
[2020-12-12 06:03] LABS: Hematocrit 26 % (42-52); Mean Corpuscular HGB Conc 31 g/dL (31-36); Mean Corpuscular Hemoglobin 30 pg (27-31); Mean Corpuscular Volume 95 fL (80-94); Mean Platelet Volume 8.2 fL (7.4-10.4); Platelet Count 83 10^3/uL (150-450); Red Cell Distribution Width 18 % (10-15); White Blood Count 7.8 10^3/uL (3.5-10.8)
[2020-12-12 06:16] LABS: BUN/Creatinine Ratio 21.4 (8-20); Calcium 9.2 mg/dL (8.6-10.3); EGFR African American 34.6 (>60); EGFR Non-African American 28.6 (>60); Potassium 4.2 mmol/L (3.5-5.0)
[2020-12-12 06:30] LABS: Polychromasia 1+
[2020-12-12 06:31] LABS: ABS Basophils 0.1 10^3/ul (0-0.2); ABS Eosinophils 0.1 10^3/ul (0-0.6); ABS Lymphocytes 1.6 10^3/ul (1.0-4.8); ABS Monocytes 0.1 10^3/ul (0-0.8); ABS Nucleated RBC 0.1 10^3/ul; Eosinophil % 0.9 %; Lymphocyte % 20.6 %; Nucleated Red Blood Cells % 0.8
[2020-12-12] MEDS: Aspirin EC 81 mg TAB.EC (enteric coated) PO SCH (08:22)
[2020-12-12] MEDS: Amiodarone 400 mg TAB PO SCH ×2 (08:22→13:14)
[2020-12-12 09:37] LABS: Albumin/Globulin Ratio 0.13 %; Protein,Total, Random Urine 14 mg/dL
[2020-12-12] MEDS: Triamcinolone 0.5% OINT 1 TUBE TOPICAL SCH ×2 (11:50→15:30)
[2020-12-12] MEDS: Insulin GLARGINE 100 un/ml 10 ml VIAL SUBCUT SCH (21:02)
[2020-12-13] MEDS: Triamcinolone 0.5% OINT 1 TUBE TOPICAL SCH ×4 (00:44→21:29)
[2020-12-13 05:42] LABS: Hematocrit 24 % (42-52); Hemoglobin 7.7 g/dL (14.0-18.0); Mean Corpuscular HGB Conc 32 g/dL (31-36); Mean Corpuscular Hemoglobin 29 pg (27-31); Mean Corpuscular Volume 92 fL (80-94); Platelet Count 83 10^3/uL (150-450); Red Blood Count 2.62 10^6 /uL (4.18-5.48); Red Cell Distribution Width 18 % (10-15); White Blood Count 11.7 10^3/uL (3.5-10.8)
[2020-12-13 05:49] LABS: BUN/Creatinine Ratio 21.7 (8-20); Calcium 9.5 mg/dL (8.6-10.3); EGFR African American 36.8 (>60); EGFR Non-African American 30.4 (>60); Potassium 4.2 mmol/L (3.5-5.0)
[2020-12-13] MEDS ORDERED: Lidocaine 2% 10 ML VIAL INJ ONE (08:19)
[2020-12-13] MEDS: Aspirin EC 81 mg TAB.EC (enteric coated) PO SCH (08:40)
[2020-12-13] MEDS: Ondansetron 4 mg VIAL 2 MG/ML 2 ml VIAL IV PRN (17:55)
[2020-12-13] MEDS: Insulin GLARGINE 100 un/ml 10 ml VIAL SUBCUT SCH (21:28)
[2020-12-14 05:38] LABS: Hematocrit 25 % (42-52); Hemoglobin 8.2 g/dL (14.0-18.0); Mean Corpuscular HGB Conc 33 g/dL (31-36); Mean Corpuscular Hemoglobin 30 pg (27-31); Mean Corpuscular Volume 94 fL (80-94); Platelet Count 69 10^3/uL (150-450); Red Cell Distribution Width 18 % (10-15); White Blood Count 9.1 10^3/uL (3.5-10.8)
[2020-12-14 06:00] LABS: BUN/Creatinine Ratio 20.4 (8-20); Calcium 9.3 mg/dL (8.6-10.3); EGFR African American 27.3 (>60); EGFR Non-African American 22.5 (>60); Potassium 4.4 mmol/L (3.5-5.0)
[2020-12-14] MEDS: Triamcinolone 0.5% OINT 1 TUBE TOPICAL SCH ×4 (11:20→21:08)
[2020-12-14] MEDS: Aspirin EC 81 mg TAB.EC (enteric coated) PO SCH (11:20)
[2020-12-14] MEDS ORDERED: Bupivacaine 0.25% SDV PF 10 ML VIAL INJ ONE (11:36)
[2020-12-14 15:36] LABS: Urine Appearance Cloudy; Urine Bilirubin Negative (Negative); Urine Blood Negative (Negative); Urine Color Yellow; Urine Glucose Negative (Negative); Urine Ketones Negative (Negative); Urine Nitrite Negative (Negative); Urine Protein Negative (Negative); Urine Specific Gravity 1.017 (1.010-1.030); Urine Urobilinogen Negative (Negative)
[2020-12-14 15:46] LABS: Urine Bacteria Absent (Absent); Urine Red Blood Cell Absent (Absent); Urine Squamous Epithelial Cell Present (Absent); Urine Uric Acid Crystals Present (Absent); Urine White Blood Cell Trace(0-5/hpf) (Absent)
[2020-12-14] MEDS ORDERED: NS 0.9% 1000 ml BAG 1,000 ML IV SCH (17:00)
[2020-12-14] MEDS: Insulin GLARGINE 100 un/ml 10 ml VIAL SUBCUT SCH (21:01)
[2020-12-15 06:25] LABS: Hematocrit 24 % (42-52); Hemoglobin 7.8 g/dL (14.0-18.0); Mean Corpuscular Hemoglobin 31 pg (27-31); Mean Corpuscular Volume 93 fL (80-94); Red Blood Count 2.56 10^6 /uL (4.18-5.48); White Blood Count 9.2 10^3/uL (3.5-10.8)
[2020-12-15 06:26] LABS: Mean Corpuscular HGB Conc 33 g/dL (31-36); Mean Platelet Volume 8.1 fL (7.4-10.4); Platelet Count 63 10^3/uL (150-450); Red Cell Distribution Width 18 % (10-15)
[2020-12-15 08:50] LABS: BUN/Creatinine Ratio 21.4 (8-20); Calcium 9.1 mg/dL (8.6-10.3); EGFR African American 30.7 (>60); EGFR Non-African American 25.4 (>60); Potassium 4.8 mmol/L (3.5-5.0)
[2020-12-15] MEDS: Aspirin EC 81 mg TAB.EC (enteric coated) PO SCH (09:54)
[2020-12-15] MEDS: Triamcinolone 0.5% OINT 1 TUBE TOPICAL SCH ×3 (10:00→21:24)
[2020-12-15 16:56] LABS: Hematocrit 26 % (42-52); Hemoglobin 8.5 g/dL (14.0-18.0)
[2020-12-15] MEDS: Insulin GLARGINE 100 un/ml 10 ml VIAL SUBCUT SCH (20:17)
[2020-12-16] MEDS: Aspirin EC 81 mg TAB.EC (enteric coated) PO SCH (08:45)
[2020-12-16] MEDS: Triamcinolone 0.5% OINT 1 TUBE TOPICAL SCH ×2 (08:48→14:18)
[2020-12-16 12:06] VITALS: BP 111/58
[2020-12-20 09:24] LABS: BM Result Summary Abnormal
== END 2020-12-16 17:45 | DRG 190 ==
LOC: ED 18:16 → CHICATH 19:10 → ICU 19:17 → MEDTELE 12-03 16:57
PROVIDERS: ADMIT Internal Medicine; ATTEND Internal Medicine